=== PATIENT | male | born 1960 | race Caucasian/White ===

== ENCOUNTER 2025-03-12 13:24 | Outpatient (AMB) | payer MEDICARE, MEDICAID, SELFPAY ==
[2025-03-12 13:36] VITALS: BP 118/70; PULSE 93; RESP 18; TEMP 36.2; O2SAT 96; BMI 22.9
--- NOTE | 2025-03-12 13:36 | A.OFFPC_ITS ---
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: No Accompanied by: Self / Same As Patient Allergies No Known Allergies Allergy (Verified 03/12/25 13:47) Medication List - Last Reconciled 03/12/25 by KARELY Sy No Known Home Meds Tobacco use date assessed: 03/12/25 Dental Screening Dental Screen Date: 03/12/25 Did you have a dental visit in the last 12 months?: No Did you have a dental problem in the last 6 months where you did not have access to dental care?: No Was dental information given to patient?: No HPI 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 The patient reports a history of osteoarthritis affecting both legs, particularly the knees, with symptoms of pain and instability. The condition has been present for several months, with a recent exacerbation noted in the last two to three months. The patient describes episodes where the legs snap back unexpectedly, causing significant pain and requiring manual repositioning. The patient also reports erectile dysfunction, which coincided with the onset of leg symptoms. The dysfunction is characterized by a reduction in size and painful erections, which began approximately two months ago. Additionally, the patient notes increased urinary frequency, urinating up to 20 times a day, which has been ongoing for over a year. There is no associated pain or discomfort reported with urination. The patient has observed skin changes on the legs, including hair loss and the appearance of red spots, which have been present for six to eight months. The skin has also become scaly over the past one to two months. The patient has a history of ligament injury, with an MRI confirming severe arthritis and ligament tears in the right knee. A surgical procedure was performed to clean the cartilage, but no significant improvement was noted by patient. Report doing PT for about 6 weeks and was discharged due to lack of improvement. [facility] Medical History (Updated 03/16/25 @ 00:18 by KARELY Sy) Tear of meniscus of left knee Degenerative arthritis Dupuytren contracture of left hand Surgical History (Updated 03/16/25 @ 00:02 by KARELY Sy) H/O meniscectomy of right knee Family History Sister Diabetes mellitus Social History Household Members: None Housing: Apartment Alcohol intake: never Patient Tobacco Use Status: Current everyday Tobacco user e-Cigarette/Vaping Use: Never Used Substance Use Type: Marijuana Current occupational status: retired Cognitive needs: No Hearing needs: No Vision needs: No Questionnaire PHQ-9 Over the last 2 weeks, how often have you been bothered by any of the following problems? 1. Little interest or pleasure in doing things: several days 2. Feeling down, depressed, or hopeless: several days 3. Trouble falling or staying asleep, or sleeping too much: more than half the days 4. Feeling tired or having little energy: several days 5. Poor appetite or overeating: not at all 6. Feeling bad about yourself - or that you are a failure or have let yourself or your family down: not at all 7. Trouble concentrating on things, such as reading the newspaper or watching television: not at all 8. Moving or speaking so slowly that other people could have noticed. Or the opposite - being so fidgety or restless that you have been moving around a lot more than usual: several days 9. Thoughts that you would be better off or of hurting yourself in some way: not at all Total score: 6 Depression Screening Interpretation: Positive Depression Screening Done: Yes 94348 - PHQ-9 Billing: Yes Source: Developed by Drs. Yaw Rangel, Lexy Benton, Odilon Salazar and colleagues, with an educational negro from [employer]. Thrive Questionnaire Date Thrive assessed: 03/05/25 I am a: Patient What is your living situation today?: I have a steady place to live Within the past 12 months, did the food you bought not last and you didn't have the money to get more?: Never true Within the past 12 months, did you worry whether your food would run out before you got money to buy more?: Never true Do you have trouble paying for medicines?: No Do you have trouble getting transportation to medical appointments?: No Do you have trouble paying your heating and electricity bill?: No Do you have trouble taking care of your child, family member or friend?: No Do you have trouble with day-to-day activities such as bathing, preparing meals, shopping, managing finances, etc.?: I choose not to answer this question Are you currently unemployed and looking for a job?: No Are you interested in more education?: No Please select the resources that you would like help with: None Currently or been in a relationship where the following occur: No concerns reported THRIVE Score: 0 AUDIT C Alcohol Use Questionnaire (AUDIT-C) 1. How often do you have a drink containing alcohol?: Never 3. How often do you have six or more drinks on one occasion?: Never Total Score: 0 FEDERICA-7 AMB Questionnaire FEDERICA-7 Feeling nervous, anxious, or on edge: 0 = Not at all Not being able to stop or control worryin = Not at all Worrying too much about different things: 1 = Several days Trouble relaxin = Several days Being so restless that it is hard to sit still: 0 = Not at all Becoming easily annoyed or irritable: 0 = Not at all Feeling afraid as if something awful might happen: 0 = Not at all Total FEDERICA-7 score (0-4 normal; 5-9 mild; 10-14 moderate; 15-21 severe): 2 Source: Developed by Drs. Yaw Rangel, Lexy Benton, Odilon Salazar and colleagues, with an educational negro from [employer]. FEDERICA-7 Assessment Billing FEDERICA-7 Assessment Tool: FEDERICA-7 Assessment 49134 Review of Systems Const Denies headache(s) Eyes Denies loss of vision ENT Denies vertigo, Denies dizziness, Denies headache(s) and Denies sore throat Card Denies chest pain, Denies leg edema and Denies lightheadedness Resp Denies cough, Denies hemoptysis and Denies wheezing GI Denies abdominal pain, Denies melena, Denies constipation, Denies diarrhea and Denies vomiting Reports erectile dysfunction, Denies dysuria, Reports urinary frequency, Denies urinary urgency and Reports other (Painful erection) Musc Reports arthralgias (Knees), Reports joint swelling (Knees), Denies numbness and Denies tingling Skin/Breast Reports dry skin (Scaly), Reports alopecia (Legs) and Reports erythema (Spots on legs) Neuro Denies Abnormal speech present, Denies behavioral changes, Denies vertigo, Denies dizziness, Denies headache(s), Denies loss of vision, Denies memory loss, Denies numbness and Denies tingling Psych Denies anxiety, Denies behavioral changes, Denies depression, Denies memory loss and Denies panic attacks Dionicio/Lymph Denies easy bleeding and Denies easy bruising Aller/Immun Denies wheezing Physical exam (Primary Care) Vital Signs: Last Vital Signs Temp 97.1 F 03/12/25 13:36 Pulse 93 03/12/25 13:36 Resp 18 03/12/25 13:36 BP 118/70 03/12/25 13:36 Pulse Ox 96 03/12/25 13:36 Oxygen Delivery Method Room Air 03/12/25 13:36 BMI result Body Mass Index 22.9 Tobacco/Smoking Status: Tobacco use Status Tobacco use date assessed 03/12/25 03/12/25 13:46 Patient Tobacco Use Status Current everyday Tobacco 03/12/25 13:46 e-Cigarette/Vaping Use Never Used 03/12/25 13:46 PHQ-9: PHQ-9 Score PHQ-9: Total score 6 03/12/25 13:55 Depression Screening Interpretation: Positive Thrive Assessment: Date of Thrive Assessment Date Thrive assessed 03/05/25 03/12/25 13:46 Currently or been in a relationship where the following occur: No concerns re ported Const General: healthy appearing, alert and awake; No no acute distress Nutritional Appearance: well nourished Orientation/consciousness: oriented to person, oriented to place and oriented to time HENMT Ears: Abnormal EAC present excessive cerumen bilateral General nose exam: Normal nasal mucous membranes and turbinates present Eyes Conjunctivae: conjunctivae normal Sclerae: sclerae normal Pupils: Equal, round and reactive pupils present Neck Neck: Yes no lymphadenopathy and Yes no JVD Thyroid: Thyroid normal Carotids: no bruits Resp Effort & Inspection: normal respiratory effort and not tachypneic Auscultation: no crackles, no rales, no rhonchi and no wheezes Cardio Rate: regular rate Rhythm: regular rhythm Heart sounds: S1 normal heart sound present, S2 normal heart sound present, no murmurs and normal S1 and S2 GI Palpation (GI): Soft to palpation, nontender, no hepatomegaly and no splenomegaly Auscultation: normal bowel sounds General: Yes no CVA tenderness Penis: normal penis Scrotum: scrotum normal Testes: Testes normal Back/Spine/Pelvis Back: no CVA tenderness Skin General skin exam: dry skin (scaly BLE) and petechiae (BLE) Neuro General: oriented to person, oriented to place and oriented to time Cranial nerves: Yes Equal, round and reactive pupils present Speech: No Abnormal speech present Gait exam (Neuro): Normal gait present Motor exam (neuro): no tremor noted Extrem Right upper extremity: full ROM Left upper extremity: full ROM and hand (4th & 5th fingers contracture) Right lower extremity: full ROM and knee Details: swelling; no tenderness; no edema Left lower extremity: full ROM and knee Details: swelling; no tenderness; no edema Psych Mental Status: mental status grossly normal Speech and movement: Normal speech and movement present Affect: normal affect Attitude: cooperative Thought process: Normal thought process present Coding Level of Care Code New Pt Level 4 (05824) Diagnoses Dupuytren contracture of left hand M72.0 Osteoarthritis of both knees, unspecified osteoarthritis type M17.0 Osteoarthritis location: knee Osteoarthritis type: unspecified Laterality: bilateral Painful penile erection N48.30 H/O meniscectomy of right knee Z98.890 Dry skin L85.3 Excessive cerumen in both ear canals H61.23 Additional Codes PHQ-9 - 18604 - PHQ-9 Billing: Yes ([id number]) FEDERICA-7 Assessment Billing - FEDERICA-7 Assessment Tool: FEDERICA-7 Assessment 01164 ([id number]) Time Spent (min) 41 Assessment & Plan Assessment & Plan (1) Dupuytren contracture of left hand: Code(s): M72.0 - Palmar fascial fibromatosis [Dupuytren] Category: Medical Plan: Left hand Dupuytren contraction (4th & 5th fingers). Declines hand specialist referral. (2) Degenerative arthritis: Code(s): M19.90 - Unspecified osteoarthritis, unspecified site Category: Medical Qualifiers: Osteoarthritis location: knee Osteoarthritis type: unspecified Laterality: bilateral Qualified Code(s): M17.0 - Bilateral primary osteoarthritis of knee Plan: Reports longstanding history of arthritis. The patient thinks that his health has deteriorated significantly over the last few months. Reports that he thinks that it is more than arthritis going on with his legs. He is currently seeing orthopedics but he does not thinks that they believes his complains. Follow up with orthopedics as scheduled (3) Painful penile erection: Code(s): N48.30 - Priapism, unspecified Category: Medical Plan: Reports that he thinks that the issue with his penis and his knee started around the same time. States that he had a significant amount of shrinkage in his penis, and also, he has been having painful erection. They patient would like to be referred to urology for a more complete evaluation. Normal noted penis on exam. Urology referral placed. (4) H/O meniscectomy of right knee: Code(s): Z98.890 - Other specified postprocedural states Category: Surgical Plan: right knee meniscus repaired by Dr. Shanks at [facility] on 01/05/2025. Currently using rolling walker in office. Gait slow and steady. Reports completing around 6 weeks of PT was discharged but lack of improvement, per patient. (5) Dry skin: Code(s): L85.3 - Xerosis cutis Category: Medical Plan: Bilateral dry, scaly lower legs. Start ammoniium lactate 12% BID (6) Excessive cerumen in both ear canals: Code(s): H61.23 - Impacted cerumen, bilateral Category: Medical Plan: Bilateral buildup of cerumen. Encouraged to start Debrox ear drops make an appo intment for ear flushing/cleaning Orders: Orders Complete Blood Count Auto Diff 03/12/25 Z00.00 - Encounter for general adult medical examination without abnormal findings UA CC w/rflx Micro + Cult 03/12/25 Z00.00 - Encounter for general adult medical examination without abnormal findings Vitamin D 25-OH Total 03/12/25 Z.00 - Encounter for general adult medical examination without abnormal findings PSA,Total (Free>4and<10) 03/12/25 Z. - Encounter for general adult medical examination without abnormal findings Comprehensive [place]. Panel Fast 03/12/25 Z. - Encounter for general adult medical examination without abnormal findings Lipid Panel 03/12/25. - Encounter for general adult medical examination without abnormal findings TSH reflex Free T4 03/12/25. - Encounter for general adult medical examination without abnormal findings Erythrocyte Sedimentation Rate 03/12/25. - Encounter for general adult medical examination without abnormal findings Cyclic Citrullinated Peptide 03/12/25. - Encounter for general adult medical examination without abnormal findings CRP High Sensitivity 03/12/25. - Encounter for general adult medical examination without abnormal findings Rheumatoid Factor 03/12/25. - Encounter for general adult medical examination without abnormal findings JIMENEZ Reflex Titer and Pattern 03/12/25. - Encounter for general adult medical examination without abnormal findings Anti DNA DS Antibody 03/12/2500.00 - Encounter for general adult medical examination without abnormal findings Medications: New ammonium lactate 12% 1 appl topical BID 385 grams 1RF
--- OUTSIDE RECORDS SUMMARY | 2025-03-12 16:50 | XMS_ITS | Clinical Summary ---
Author Organization [facility] Address [address] [place] [address] Phone Care Team Providers Care Gynecologist Name Role Phone Unavailable Primary Care Provider Unavailabl e Encounters Date Type Department Care Team Description 12/23/2024 6:44 PM EDT - 12/23/2024 11:59 PM EDT Hospital Encounter [facility] MRI [address] [place] [id number] Pain in right knee Discharge Disposition: Home or Self Care from Last 3 Months Social History Tobacco Use Types Packs/Day Years Used Date Smoking Tobacco: Never Assessed Sex and Gender Information Value Date Recorded Sex Assigned at Not on file Legal Sex Male 6:40 PM EDT Gender Identity Not on file Sexual Orientation Not on file Plan of Treatment Health Maintenance Due Date Last Done Comments Colorectal Cancer Screening: Colonoscopy 1961 DTaP,Tdap,and Td Vaccines (1 - Tdap) 1980 Pneumococcal Vaccine: 50+ Years (1 of 1 - PCV) 11/26/2011 Zoster Vaccines (1 of 2) 11/26/2011 Depression Screening 05/28/2024 Cholesterol Screening (Lipid Panel) 12/24/2024 HIV Screening 12/24/2024 Hepatitis C Screening 12/24/2024 Social Influencers of Health Screening 12/24/2024 COVID-19 Vaccine (3 - 2024-2 6 season) 2025 03/22/2021, 02/22/2021 Influenza Vaccine (#1) 2025 RSV Immunization Adult Patients (1 - 1-dose 75+ series) 2036 HIB Vaccines Aged Out No longer eligi ble based on patient's age to complete this topic HPV Vaccines Aged Out No longer eligi ble based on patient's age to complete this topic Hepatitis A Vaccines Aged Out No long er eligible based on patient's age to complete this topic Hepatitis B Vaccines Aged Out No long er eligible based on patient's age to complete this topic IPV Vaccines Aged Out No longer eligi ble based on patient's age to complete this topic MMR Vaccines Aged Out No longer eligi ble based on patient's age to complete this topic Meningococcal ACWY Vaccine Aged Out N o longer eligible based on patient's age to complete this topic Meningococcal B Vaccine Aged Out No l onger eligible based on patient's age to complete this topic RSV Immunization Patients Under 20 months Aged Out No longer eligible b ased on patient's age to complete this topic Varicella Vaccines Aged Out No longer eligible based on patient's age to complete this topic Procedures Procedure Name Priority Date/Time Associated Diagnosis Comments MR KNEE WO CONTRAST RIGHT Routine 12/23/2024 7:46 PM EDT Pain in right knee from Last 3 Months Results * MR Knee wo Contrast Right (12/23/2024 7:46 PM EDT) Anatomical Region Laterality Modality Lower Extremities, Knee Right Magnetic Resonance 12/24/2024 3:10 AM EDT Impressions 12/24/2024 3:17 AM EDT Limited study due to motion. 1. Horizontal tearing of the body and posterior horn of the medial meniscus 2. Grade 1 MCL sprain 3. Tricompartmental degenerative changes of the right knee with right knee joint effusion -------- FINAL REPORT -------- Dictated By: Bessy Westfall Dictated Date: 12/24/2024 03:10 ET Assigned Physician: Bessy Westfall Reviewed and Electronically Signed By: Bessy Westfall Signed Date: 12/24/2024 03:17 ET Workstation ID: [id number] Transcribed By: Self Edit Transcribed Date: 12/24/2024 03:10 ET Narrative 12/24/2024 3:17 AM EDT INDICATION: PAIN RT KNEE, R/O FX COMPARISON: None TECHNIQUE: Multiplanar, multisequence MRI examination was performed of the RIGHT knee without intravenous contrast. FINDINGS: Study is limited due to motion. Menisci:Horizontal tearing involving the body and posterior horn of the medial meniscus. Lateral meniscus is intact. Ligaments:Mild grade 1 MCL sprain. ACL, PCL and LCL complex are intact. Tendons:Mild proximal patellar tendinosis. Quadriceps tendon and popliteus tendon are intact. Bones:No acute fracture or dislocation. Mild hypertrophic lipping of the lateral knee compartment and tiny retropatellar osteophytes. Bone island involving the lateral femoral condyle. Cartilage: Patellofemoral:Preserved Medial tibiofemoral:Mild to moderate cartilage thinning of the posterior weightbearing portion of the medial femoral condyle and the medial tibial plateau. Lateral tibiofemoral:Mild cartilage thinning of the posterior weightbearing and nonweightbearing portion of the lateral femoral condyle. Miscellaneous:Right knee joint effusion with suprapatellar plica. Fluid signal along the deep infrapatellar bursae and also along the infrapatellar plica. Popliteal fossa cyst. Medial plica. Procedure Note Bessy Westfall MD - 12/24/2024 INDICATION: PAIN RT KNEE, R/O FX COMPARISON: None TECHNIQUE: Multiplanar, multisequence MRI examination was performed ofthe RIGHT knee without intravenous contrast. FINDINGS: Study is limited due to motion. Menisci:Horizontal tearing involving the body and posterior horn of themedial meniscus. Lateral meniscus is intact. Ligaments:Mild grade 1 MCL sprain. ACL, PCL and LCL complex are intact. Tendons:Mild proximal patellar tendinosis. Quadriceps tendon andpopliteus tendon are intact. Bones:No acute fracture or dislocation. Mild hypertrophic lipping of thelateral knee compartment and tiny retropatellar osteophytes. Bone islandinvolving the lateral femoral condyle. Cartilage: Patellofemoral:Preserved Medial tibiofemoral:Mild to moderate cartilage thinning of the posteriorweightbearing portion of the medial femoral condyle and the medial tibialplateau. Lateral tibiofemoral:Mild cartilage thinning of the posteriorweightbearing and nonweightbearing portion of the lateral femoralcondyle. Miscellaneous:Right knee joint effusion with suprapatellar plica. Fluidsignal along the deep infrapatellar bursae and also along theinfrapatellar plica. Popliteal fossa cyst. Medial plica. IMPRESSION: Limited study due to motion. 1. Horizontal tearing of the body and posterior horn of the medialmeniscus 2. Grade 1 MCL sprain 3. Tricompartmental degenerative changes of the right knee with rightknee joint effusion -------- FINAL REPORT -------- Dictated By: Bessy Westfall Dictated Date: 12/24/2024 03:10 ET Assigned Physician: Bessy Westfall Reviewed and Electronically Signed By: Bessy Westfall Signed Date: 12/24/2024 03:17 ET Workstation ID: [id number] Transcribed By: Self Edit Transcribed Date: 12/24/2024 03:10 ET us Jose Shanks MD IMG MRI PROCEDURES Final Resu lt from Last 3 Months
== END 2025-03-12 14:26 | disposition home or self-care (01) ==
LOC: HO.HMCH 13:25
DX: M72.0 Palmar fascial fibromatosis [Dupuytren] (principal); M17.0 Bilateral primary osteoarthritis of knee; N48.30 Priapism, unspecified; Z98.890 Other specified postprocedural states; L85.3 Xerosis cutis; H61.23 Impacted cerumen, bilateral

== ENCOUNTER → 2025-03-12 13:24 | Outpatient (BNVA) | payer MEDICARE, MEDICAID, SELFPAY | DX: M17.0 Bilateral primary osteoarthritis of knee (principal); M72.0 Palmar fascial fibromatosis [Dupuytren]; N52.9 Male erectile dysfunction, unspecified; R35.0 Frequency of micturition; N48.30 Priapism, unspecified; L85.3 Xerosis cutis; H61.23 Impacted cerumen, bilateral; Z98.890 Other specified postprocedural states | CPT/HCPCS: 96127; 99202 ==

== ENCOUNTER 2025-03-17 09:15 | Outpatient (REF) | payer MEDICARE, MEDICAID, SELFPAY ==
[2025-03-17 11:47] LABS: MANUAL DIFF FLAG NO
[2025-03-17 11:52] LABS: Hematocrit 41.9 % (42.0-52.0); Hemoglobin 14.3 g/dl (14.0-18.0); Imm Gran Abs Auto 0.03 X10*3/uL (0.00-0.03); Imm Gran Pct Auto 0.4 % (0.0-0.4); Lymphocytes Absolute Auto 2.8 X10*3/uL (1.2-4.9); Mean Corpuscular HGB Conc 34.1 g/dl (31.0-36.0); Mean Corpuscular Hemoglobin 31.4 pg (27.0-33.0); Mean Corpuscular Volume 91.9 fL (80.0-98.0); NRBC Abs Auto 0.000 X10*3/uL (0.0-0.012); NRBC Pct Auto 0.0 /100WBC (0.0-0.2); Platelet Count 268 X10*3/uL (160-400); Red Blood Count 4.56 X10*6/uL (4.60-5.80); White Blood Count 7.8 X10*3/uL (4.8-10.8)
[2025-03-17 11:56] LABS: Appearance Urine Clear; Glucose Urine UA Negative (Negative); PH 5.5 (5.0-9.0); Specific Gravity - Urine 1.020 (1.005-1.025)
[2025-03-17 12:37] LABS: Alanine Aminotransferase 25 U/L (0-40); Albumin Level 4.3 g/dL (3.5-5.0); Alkaline Phosphatase 57 U/L (39-117); Anion Gap 10 (12-20); Aspartate Amino Transferase 18 U/L (5-37); Blood Urea Nitrogen 16 mg/dL (9-16); Calcium 9.3 mg/dL (8.4-10.2); Carbon Dioxide 25 mmol/L (22-29); Chloride 109 mmol/L (96-108); Cholesterol 254 mg/dL (<200); Estimated Glomerular Filt Rate > 60; HDL Cholesterol 46 mg/dL (>40); Potassium 4.2 mmol/L (3.3-5.1); Sodium 140 mmol/L (135-145); Total Protein 7.5 g/dL (6.5-8.0); Triglycerides 202 mg/dL (<150)
[2025-03-17 13:39] LABS: PSA,Total (Free>4and<10) 0.98 ng/mL (0.00-4.00)
[2025-03-18 05:34] LABS: Lyme Abs Screen <0.90 index
[2025-03-24 12:59] LABS: Anti Nuclear Antibody Screen NEGATIVE (NEGATIVE)
== END 2025-03-17 09:16 | disposition home or self-care (01) ==
LOC: HO.WFDLDS 09:15
DX: Z00.00 Encounter for general adult medical examination without abnormal findings (principal); T14.90XA Injury, unspecified, initial encounter; Z12.5 Encounter for screening for malignant neoplasm of prostate; Z13.6 Encounter for screening for cardiovascular disorders; Z13.29 Encounter for screening for other suspected endocrine disorder; Z13.0 Encounter for screening for diseases of the blood and blood-forming organs and certain disorders involving the immune mechanism; W57.XXXA Bitten or stung by nonvenomous insect and other nonvenomous arthropods, initial encounter
CPT/HCPCS: 36415; 80053; 80061; 81003; 82306; 84153; 84443; 85025; 85652; 86038; 86141; 86200; 86225; 86431; 86617; 86618

== ENCOUNTER 2025-05-05 14:22 | Outpatient (AMB) | payer OTHER, SELFPAY ==
--- NOTE | 2025-05-05 14:48 | MHC.PC.OV ---
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 Required: No Accompanied by: Self / Same As Patient Allergies No Known Allergies Allergy (Verified 05/05/25 14:56) Medication List - Last Reconciled 05/05/25 by KARELY Sy ammonium lactate 12% 1 appl topical BID Tobacco use date assessed: 03/12/25 Dental Screening Dental Screen Date: 03/12/25 Did you have a dental visit in the last 12 months?: No Did you have a dental problem in the last 6 months where you did not have access to dental care?: No Was dental information given to patient?: Patient declined HPI Annual Exam HPI Details Dentist: Reports that he is not interested Eye: Not in years Snellen: Right: Left: Corrected vision: no STI screening: Colonoscopy: not interested Pap Smer: PHQ-9: Flu: not interested COVID: x2, only because he needed it to go visit his father in the prison Tdap: Declined Diet: regular Exercise: Reports that isn't able to due to his arthritis The patient is a 64 year old male presenting for annual physical The patient has a history of high cholesterol and was previously prescribed medication about 8-10 years ago, which he reportedly did not take and did not get renewed. He admits to a diet that is not ideal, including high salt and sugar intake, beef, pork, and frequent milk consumption. He does not eat vegetables and eats very little fruit. The patient has plates in his jaw from a long time ago, which dentists have advised against removing due to the risks involved, complicating potential dental surgery. He has not seen a dentist in the past year and has few remaining teeth, which are not currently painful. He has never had a colonoscopy and declines to have one. He has not had an eye exam in years and does not wear glasses, reporting no issues with his vision. He has an upcoming appointment with a urologist on the of this month and a neurologist on June 16. He reports he does not get sick often. He expressed a general aversion to vaccinations, stemming from an experience where his cat shortly after receiving a rabies vaccine. He declines the flu and tetanus vaccines but received the initial two COVID-19 vaccines a couple of years ago in order to visit a family member in a prison. Health Maintenance The patient's lab results were reviewed, noting mild anemia and normal kidney, liver, thyroid, and prostate-specific antigen levels. His fasting glucose of 98 indicates he is not diabetic, but counseling was provided on reducing sugar intake to prevent future risk. He was reminded about the importance of dental care, eye exams, and colon cancer screening, though he declined colonoscopy. The patient declined flu and tetanus immunizations. Further management will be deferred pending results and recommendations from his upcoming consultations with urology and neurology. Social History - Diet: Reports a poor diet, admitting he does not eat vegetables and rarely eats fruit. - He consumes a lot of salt, sugar, milk, beef, and pork. - He denies eating a lot of fried foods or shellfish. - Functional Status: Reports he Results - CBC: Mild anemia with slightly low red blood cell count. - Chemistry Panel: Electrolytes, kidney function, and liver enzymes are normal. - Fasting Glucose: 98 mg/dL. - Lipid Panel: Cholesterol is significantly high. - Thyroid Function: Normal. - Vitamin D: Normal. - Prostate-Specific Antigen (PSA): Normal. [facility] Medical History Tear of meniscus of left knee Degenerative arthritis Dupuytren contracture of left hand Surgical History (Updated 03/16/25 @ 00:02 by KARELY Sy) H/O meniscectomy of right knee Family History Sister Diabetes mellitus Social History Household Members: None Housing: Apartment Alcohol intake: never Patient Tobacco Use Status: Current everyday Tobacco user Cigarettes Per Day: 30 Years Smoked: 20 years e-Cigarette/Vaping Use: Never Used Substance Use Type: Marijuana service: No Current occupational status: retired and disabled Cognitive needs: No Hearing needs: No Vision needs: No Questionnaire PHQ-9 Over the last 2 weeks, how often have you been bothered by any of the following problems? Depression Screening Interpretation: Positive Depression Screening Done: Yes Source: Developed by Drs. Yaw Rangel, Lexy Benton, Odilon Salazar and colleagues, with an educational negro from [employer]. Thrive Questionnaire Date Thrive assessed: 03/05/25 I am a: Patient What is your living situation today?: I have a steady place to live Within the past 12 months, did the food you bought not last and you didn't have the money to get more?: Never true Within the past 12 months, did you worry whether your food would run out before you got money to buy more?: Never true Do you have trouble paying for medicines?: No Do you have trouble getting transportation to medical appointments?: No Do you have trouble paying your heating and electricity bill?: No Do you have trouble taking care of your child, family member or friend?: No Do you have trouble with day-to-day activities such as bathing, preparing meals, shopping, managing finances, etc.?: I choose not to answer this question Are you currently unemployed and looking for a job?: No Are you interested in more education?: No Please select the resources that you would like help with: None Currently or been in a relationship where the following occur: No concerns reported THRIVE Score: 0 Review of Systems Narrative Review of Systems - Musculoskeletal: Reports history of back pain that has since resolved; denies current pain. - HEENT: Denies problems with vision. - Denies dental pain. - Constitutional: Reports he does not get sick frequently with colds or flu. Const Denies headache(s) Eyes Denies loss of vision ENT Denies vertigo, Denies dizziness, Denies headache(s) and Denies sore throat Card Denies chest pain, Denies leg edema and Denies lightheadedness Resp Denies cough, Denies hemoptysis and Denies wheezing GI Denies abdominal pain, Denies melena, Denies constipation, Denies diarrhea and Denies vomiting Reports erectile dysfunction, Denies dysuria, Reports urinary frequency, Denies urinary urgency and Reports other (Painful erection) Musc Reports arthralgias (Knees), Reports joint swelling (Knees), Denies numbness and Denies tingling Skin/Breast Reports dry skin (Scaly), Reports alopecia (Legs) and Reports erythema (Spots on legs) Neuro Denies Abnormal speech present, Denies behavioral changes, Denies vertigo, Denies dizziness, Denies headache(s), Denies loss of vision, Denies memory loss, Denies numbness and Denies tingling Psych Denies anxiety, Denies behavioral changes, Denies depression, Denies memory loss and Denies panic attacks Dionicio/Lymph Denies easy bleeding and Denies easy bruising Aller/Immun Denies wheezing Physical exam (Primary Care) Vital Signs: Last Vital Signs Temp 97.9 F 05/05/25 14:50 Pulse 94 05/05/25 14:50 Resp 18 05/05/25 14:50 BP 132/80 05/05/25 14:50 Pulse Ox 95 05/05/25 14:50 Oxygen Delivery Method Room Air 05/05/25 14:50 BMI result Body Mass Index 23.5 Tobacco/Smoking Status: Tobacco use Status Tobacco use date assessed 03/12/25 05/05/25 14:51 Patient Tobacco Use Status Current everyday Tobacco 05/05/25 14:51 e-Cigarette/Vaping Use Never Used 05/05/25 14:51 Depression Screening Interpretation: Positive Thrive Assessment: Date of Thrive Assessment Date Thrive assessed 03/05/25 05/05/25 14:51 Currently or been in a relationship where the following occur: No concerns reported Narrative Physical Exam - HEENT: Otoscopic exam revealed some wax in the ear canal. - Musculoskeletal: Back examination was negative for pain. - Lungs: Clear to auscultation bilaterally. Const General: healthy appearing, alert and awake; No no acute distress Nutritional Appearance: well nourished Orientation/consciousness: oriented to person, oriented to place and oriented to time [facility] Ears: Abnormal EAC present excessive cerumen bilateral General nose exam: Normal nasal mucous membranes and turbinates present Eyes Conjunctivae: conjunctivae normal Sclerae: sclerae normal Pupils: Equal, round and reactive pupils present Neck Neck: Yes no lymphadenopathy and Yes no JVD Thyroid: Thyroid normal Carotids: no bruits Resp Effort & Inspection: normal respiratory effort and not tachypneic Auscultation: no crackles, no rales, no rhonchi and no wheezes Cardio Rate: regular rate Rhythm: regular rhythm Heart sounds: S1 normal heart sound present, S2 normal heart sound present, no murmurs and normal S1 and S2 GI Palpation (GI): Soft to palpation, nontender, no hepatomegaly and no splenomegaly Auscultation: normal bowel sounds General: Yes no CVA tenderness Penis: normal penis Scrotum: scrotum normal Testes: Testes normal Back/Spine/Pelvis Back: no CVA tenderness Skin General skin exam: dry skin (scaly BLE) and petechiae (BLE) Neuro General: oriented to person, oriented to place and oriented to time Cranial nerves: Yes Equal, round and reactive pupils present Speech: No Abnormal speech present Gait exam (Neuro): Normal gait present Motor exam (neuro): no tremor noted Extrem Right upper extremity: full ROM Left upper extremity: full ROM and hand (4th & 5th fingers contracture) Right lower extremity: full ROM and knee Details: swelling; no tenderness; no edema Left lower extremity: full ROM and knee Details: swelling; no tenderness; no edema Psych Mental Status: mental status grossly normal Speech and movement: Normal speech and movement present Affect: normal affect Attitude: cooperative Thought process: Normal thought process present Results Reviewed Results Reviewed: Laboratory Tests 03/17/25 03/17/25 09:22 09:36 WBC 7.8 RBC 4.56 L Hgb 14.3 Hct 41.9 L MCV 91.9 MCH 31.4 MCHC 34.1 RDW 13.9 Plt Count 268 Sodium 140 Potassium 4.2 Chloride 109 H Carbon Dioxide 25 Anion Gap 10 L BUN 16 Creatinine 0.89 Estimated GFR > 60 Fasting Glucose 98 Calcium 9.3 Total Bilirubin 0.3 AST 18 ALT 25 Alkaline Phosphatase 57 C-React Prot High Sens 1.7 Total Protein 7.5 Albumin 4.3 Triglycerides 202 H Cholesterol 254 H LDL Cholesterol, Calc 168 H HDL Cholesterol 46 Total PSA 0.98 25-OH Vitamin D Total 43.8 TSH 1.06 Urine Color Yellow Urine Appearance Clear Urine pH 5.5 Ur Specific [place] 1.020 Urine Protein Negative Urine Glucose (UA) Negative Urine Ketones Negative Urine Blood Negative Urine Nitrite Negative Ur Leukocyte Esterase Negative Coding Level of Care Code Est Pt Prev Care 40-64y(23778) Diagnoses Annual physical exam Z00.00 Dupuytren contracture of left hand M72.0 Osteoarthritis of both knees, unspecified osteoarthritis type M17.0 Osteoarthritis location: knee Osteoarthritis type: unspecified Laterality: bilateral Painful penile erection N48.30 H/O meniscectomy of right knee Z98.890 Dry skin L85.3 Excessive cerumen in both ear canals H61.23 Mixed hyperlipidemia E78.2 Hyperlipidemia type: mixed hyperlipidemia Anemia, unspecified type D64.9 Anemia type: unspecified type Time Spent (min) 37 Assessment & Plan Assessment & Plan (1) Annual physical exam: Code(s): Z00.00 - Encounter for general adult medical examination without abnormal findings Category: Medical Plan: Preventative guidelines and recent labs reviewed with the patient. (2) Dupuytren contracture of left hand: Code(s): M72.0 - Palmar fascial fibromatosis [Dupuytren] Category: Medical Plan: Left hand Dupuytren contraction (4th & 5th fingers). Declines hand specialist referral. (3) Degenerative arthritis: Code(s): M19.90 - Unspecified osteoarthritis, unspecified site Category: Medical Qualifiers: Osteoarthritis location: knee Osteoarthritis type: unspecified Laterality: bilateral Qualified Code(s): M17.0 - Bilateral primary osteoarthritis of knee Plan: Reports longstanding history of arthritis. The patient thinks that his health has deteriorated significantly over the last few months. Reports that he thinks that it is more than arthritis going on with his legs. He is currently seeing orthopedics but he does not thinks that they believes his complains. Follow up with orthopedics as scheduled (4) Painful penile erection: Code(s): N48.30 - Priapism, unspecified Category: Medical Plan: Reports that he thinks that the issue with his penis and his knee started around the same time. States that he had a significant amount of shrinkage in his penis, and also, he has been having painful erection. They patient would like to be referred to urology for a more complete evaluation. Normal noted penis on exam. Urology referral placed and the patient has an appt on 05/15/25. (5) H/O meniscectomy of right knee: Code(s): Z98.890 - Other specified postprocedural states Category: Surgical Plan: right knee meniscus repaired by Dr. Shanks at [facility] on 01/05/2025. Currently using rolling walker in office. Gait slow and steady. Reports completing around 6 weeks of PT was discharged but lack of improvement, per patient. (6) Dry skin: Code(s): L85.3 - Xerosis cutis Category: Medical Plan: Bilateral dry, scaly lower legs. Started ammoniium lactate 12% BID on his previous visit (7) Excessive cerumen in both ear canals: Code(s): H61.23 - Impacted cerumen, bilateral Category: Medical Plan: Bilateral buildup of cerumen. Encouraged to start Debrox ear drops make an appointment for ear flushing/cleaning (8) HLD (hyperlipidemia): Code(s): E78.5 - Hyperlipidemia, unspecified Category: Medical Qualifiers: Hyperlipidemia type: mixed hyperlipidemia Qualified Code(s): E78.2 - Mixed hyperlipidemia Plan: The patient's cholesterol is significantly high. He has a history of being prescribed medication for this in the past but was non-adherent. After discussing the risks versus benefits and the potential for side effects, he is willing to try a low-dose medication. A prescription will be called in, with the recommendation to take it at night. A repeat cholesterol level will be checked in three months to monitor the medication's effectiveness (9) Anemia: Code(s): D64.9 - Anemia, unspecified Category: Medical Qualifiers: Anemia type: unspecified type Qualified Code(s): D64.9 - Anemia, unspecified Plan: mild anemia. We will evaluate his B12 and folate in his follow up labs. Orders: Orders Vitamin B12 and Folate 3 Months D64.9 - Anemia, unspecified, E78.5 - Hyperlipidemia, unspecified, N48.30 - Priapism, unspecified, R29.898 - Other symptoms and signs involving the musculoskeletal system, Z98.890 - Other specified postprocedural states CRP High Sensitivity 3 Months D64.9 - Anemia, unspecified, E78.5 - Hyperlipidemia, unspecified, N48.30 - Priapism, unspecified, R29.898 - Other symptoms and signs involving the musculoskeletal system, Z98.890 - Other specified postprocedural states Erythrocyte Sedimentation Rate 3 Months D64.9 - Anemia, unspecified, E78.5 - Hyperlipidemia, unspecified, N48.30 - Priapism, unspecified, R29.898 - Other symptoms and signs involving the musculoskeletal system, Z98.890 - Other specified postprocedural states UA CC w/rflx Micro + Cult 3 Months D64.9 - Anemia, unspecified, E78.5 - Hyperlipidemia, unspecified, N48.30 - Priapism, unspecified, R29.898 - Other symptoms and signs involving the musculoskeletal system, Z98.890 - Other specified postprocedural states TSH reflex Free T4 3 Months D64.9 - Anemia, unspecified, E78.5 - Hyperlipidemia, unspecified, N48.30 - Priapism, unspecified, R29.898 - Other symptoms and signs involving the musculoskeletal system, Z98.890 - Other specified postprocedural states Vitamin D 25-OH Total 3 Months D64.9 - Anemia, unspecified, E78.5 - Hyperlipidemia, unspecified, N48.30 - Priapism, unspecified, R29.898 - Other symptoms and signs involving the musculoskeletal system, Z98.890 - Other specified postprocedural states Lipid Panel 3 Months D64.9 - Anemia, unspecified, E78.5 - Hyperlipidemia, unspecified, N48.30 - Priapism, unspecified, R29.898 - Other symptoms and signs involving the musculoskeletal system, Z98.890 - Other specified postprocedural states Complete Blood Count Auto Diff 3 Months D64.9 - Anemia, unspecified, E78.5 - Hyperlipidemia, unspecified, N48.30 - Priapism, unspecified, R29.898 - Other symptoms and signs involving the musculoskeletal system, Z98.890 - Other specified postprocedural states Comprehensive [place]. Panel Fast 3 Months D64.9 - Anemia, unspecified, E78.5 - Hyperlipidemia, unspecified, N48.30 - Priapism, unspecified, R29.898 - Other symptoms and signs involving the musculoskeletal system, Z98.890 - Other specified postprocedural states Medications: New atorvastatin (Lipitor) 10 mg PO BEDTIME 90 tabs 3RF
[2025-05-05 14:50] VITALS: BP 132/80; PULSE 94; RESP 18; TEMP 36.6; O2SAT 95; BMI 23.5
--- OUTSIDE RECORDS SUMMARY | 2025-05-05 20:20 | XMS_ITS | Clinical Summary ---
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 [address] [place] [address] MEDICAID [place] MEDICARE
== END 2025-05-05 15:19 | disposition home or self-care (01) ==
LOC: HO.HMCH 14:23
DX: Z00.00 Encounter for general adult medical examination without abnormal findings (principal); M72.0 Palmar fascial fibromatosis [Dupuytren]; M17.0 Bilateral primary osteoarthritis of knee; N48.30 Priapism, unspecified; Z98.890 Other specified postprocedural states; L85.3 Xerosis cutis; H61.23 Impacted cerumen, bilateral; E78.2 Mixed hyperlipidemia; D64.9 Anemia, unspecified

== ENCOUNTER → 2025-05-05 14:22 | Outpatient (BNVA) | payer OTHER, SELFPAY | DX: Z00.00 Encounter for general adult medical examination without abnormal findings (principal); D64.9 Anemia, unspecified; M72.0 Palmar fascial fibromatosis [Dupuytren]; M17.0 Bilateral primary osteoarthritis of knee; N48.30 Priapism, unspecified; L85.3 Xerosis cutis; H61.23 Impacted cerumen, bilateral; E78.2 Mixed hyperlipidemia; Z98.890 Other specified postprocedural states | CPT/HCPCS: 99396 ==